=== PATIENT | male | born 1965 | race Caucasian/White ===

== ENCOUNTER 2018-03-05 10:48 | Day surgery (SDC) | payer OTHER ==
[2018-03-05] MEDS ORDERED: LACTATED RINGERS 1,000 ML IV ONE (11:12)
[2018-03-05 13:10] VITALS: BP 118/75
[2018-03-05] MEDS ORDERED: MIDAZOLAM 2 MG/2 ML VIAL IVP ONE (13:24)
[2018-03-05] MEDS ORDERED: fentaNYL 250 MCG/5 ML VIAL IVP ONE (13:24)
== END 2018-03-05 10:49 | disposition home or self-care (01) ==
LOC: SDS 10:48
PROVIDERS: ATTEND Surgery
PROC: 0DJD8ZZ Inspection of Lower Intestinal Tract, Via Natural or Artificial Opening Endoscopic (ICD-10-PCS; principal; 2018-03-05 12:15)
DX: Z12.11 Encounter for screening for malignant neoplasm of colon (principal); K64.8 Other hemorrhoids
CPT/HCPCS: 45378; J3010; J7120